=== PATIENT | female | born 1950 | race Caucasian/White ===

== ENCOUNTER → 2018-04-04 12:06 | Outpatient (CLI) | payer MEDICARE, SELFPAY ==
--- NOTE | 2018-04-04 | DI.MG.S_ITS ---
BILATERAL DIGITAL SCREENING MAMMOGRAM 3D/2D WITH CAD: 04/04/2018 CLINICAL: Routine screening. Family history of breast cancer. Comparison is made to exams dated: 11/17/2016 mammogram, 09/22/2015 mammogram, and 09/18/2014 mammogram - [facility]. The tissue of both breasts is extremely dense, which lowers the sensitivity of mammography. Current study was also evaluated with a Computer Aided Detection (CAD) system. There are benign post operative findings in the right breast. There also are benign vascular calcifications in both breasts. Additionally, there are benign biopsy clips in the right breast. No significant masses, calcifications, or other findings are seen in either breast. There has been no significant interval change. IMPRESSION: There is no mammographic evidence of malignancy. A 1 year screening mammogram is recommended. This exam was interpreted at Station ID: [id number]. NOTE: For mammograms, a report in lay terms will be sent to the patient. Approximately 15% of breast malignancies will not be visualized mammographically. In the management of a palpable breast mass, a negative mammogram must not discourage biopsy of a clinically suspicious lesion. Electronically Signed By: Alberto jones/maria antonia:04/04/2018 19:31:21 letter sent: Normal Exam ACR BI-RADS Category 2: Benign Finding(s) 3342F
== END ==
PROVIDERS: PCP Internal Medicine; Visit Provider Internal Medicine
DX: Z12.31 Encounter for screening mammogram for malignant neoplasm of breast (principal); Z80.3 Family history of malignant neoplasm of breast
CPT/HCPCS: 77063; 77067

== ENCOUNTER 2018-09-06 16:45 | Emergency (ER) | payer MEDICARE, SELFPAY ==
[2018-09-06 16:51] VITALS: BP 166/97; PULSE 87; RESP 16; TEMP 36.9; O2SAT 97; BMI 20.7
[2018-09-06] MEDS: diphenhydrAMINE 50 MG/ML VIAL 25 MG IV (17:00)
[2018-09-06] MEDS: methylPREDNISolone 125 MG/2 ML VIAL IV (17:00)
[2018-09-06] MEDS: FAMOTIDINE 20 MG/50 ML PIGGYBACK 200 MG IV (17:11)
--- NOTE | 2018-09-06 17:21 | ED_ITS ---
HPI - Allergic Reaction <MEKA Phillips - Last Filed: 09/06/18 18:42> General Chief complaint: Allergic Reaction Stated complaint: allergic reaction to medication Time Seen by Provider: 09/06/18 16:55 Source: patient and family Mode of arrival: ambulatory History of Present Illness HPI narrative: The is a 68-year-old female nonsmoker with history of dental problems who presents with her significant other for chief complaint of an allergic reaction. She was at the dentist office and took her 1st dose of amoxicillin. It was noted that she had hives, and flushing as well as swelling around her abscess tooth immediately after taking the amoxicillin. She denies any swelling of the lips or face or tongue other than her tooth. She denies any wheezing or shortness of breath. She denies any lightheadedness or dizziness. She has not taken anything prior to arrival. She states that she did not have any injections at the dentist office or anything similar prior to in the redness or hives. She is placed on a steroid burst upon discharge, and I did discuss with her that she can take [id number] antihistamines as needed. Related Data Home Medications Medication Instructions Recorded Confirmed amoxicillin 500 mg PO TID 09/06/18 09/06/18 metronidazole 500 mg PO TID 09/06/18 09/06/18 Previous Rx's Medication Instructions Recorded prednisone 50 mg PO DAILY #6 tab 09/06/18 Allergies Allergy/AdvReac Type Severity Reaction Status Date / Time amoxicillin Allergy Verified 09/06/18 17:00 codeine [CODEINE] AdvReac Intermediate NAUSEASE Verified 09/06/18 17:00 AND VOMITING Review of Systems <MEKA Phillips - Last Filed: 09/06/18 18:42> Review of Systems GENERAL: Denies chills, fatigue, malaise, fever, sweats. HEENT: Denies sinus pain, ear pain, sore throat, difficulty swallowing, dizziness. RESPIRATORY: Denies dyspnea, cough, wheezing, hemoptysis, sputum. CARDIOVASCULAR: Denies chest pain, palpitations, orthopnea, edema, GASTROINTESTINAL: Denies nausea, vomiting, abdominal pain, diarrhea, constipation, melena. : Denies dysuria, frequency, incontinence, hematuria, urinary retention. MUSCULOSKELETAL: denies weakness, joint pain, or bony pain SKIN: See HPI NEUROLOGIC: Denies weakness, headache, numbness, change in speech, confusion, seizures, incoordination. PSYCHIATRIC: No concerning psychosocial issues. 12 point review of systems is negative except for those stated above PFSH <MEKA Phillips - Last Filed: 09/06/18 18:42> Medical History (Updated 09/06/18 @ 17:59 by MEKA Phillips) Dental abscess (Acute) Social History (Updated 09/06/18 @ 17:19 by MEKA Phillips) Smoking Status: Never smoker Social History (Updated 09/06/18 @ 17:19 by MEKA Phillips) Smoking Status: Never smoker Exam <MEKA Phillips - Last Filed: 09/06/18 18:42> Narrative Exam Narrative: GENERAL: This is a well-nourished, well-developed patient, in mild distress. HEAD: Atraumatic. Normocephalic. No temporal or scalp tenderness. EYES: Pupils equal round and reactive. Extraocular motions intact. No scleral icterus. No injection or drainage. ENT: Nose without bleeding, purulent drainage or septal hematoma. Throat without erythema, tonsillar hypertrophy or exudate. Uvula midline. Airway patent. no air pharyngeal swelling noted. large right lower dental swelling noted. NECK: Trachea midline. No JVD or lymphadenopathy. Supple, nontender, no meningeal signs. CARDIOVASCULAR: Regular rate and rhythm without murmurs, gallops, or rubs. RESPIRATORY: Clear to auscultation. Breath sounds equal bilaterally. No wheezes, rales, or rhonchi. No cough. No increased respiratory effort. No stridor. GASTROINTESTINAL: Abdomen soft, non-tender, nondistended. No hepato- splenomegaly, or palpable masses. No guarding. EXTREMITIES: No clubbing, cyanosis, or edema. No joint tenderness, effusion, or edema noted. BACK: Nontender without deformity or crepitance. No flank tenderness. NEURO: AOx3. SKIN: Scattered uticaria noted on back, back of neck. Initial Vital Signs Initial Vital Signs: Vital Signs Temperature 98.5 F 09/06/18 16:51 Pulse Rate 87 09/06/18 16:51 Respiratory Rate 16 09/06/18 16:51 Blood Pressure 166/97 H 09/06/18 16:51 Pulse Oximetry 97 09/06/18 16:51 <Mary Almanzar DO - Last Filed: 09/09/18 19:00> Initial Vital Signs Initial Vital Signs: Vital Signs Temperature 98.5 F 09/06/18 16:51 Pulse Rate 87 09/06/18 16:51 Respiratory Rate 16 09/06/18 16:51 Blood Pressure 166/97 H 09/06/18 16:51 Pulse Oximetry 97 09/06/18 16:51 Course <CITLALI Phillips-JOSEFA - Last Filed: 09/06/18 18:42> Orders Ordered: Discontinued Medications Diphenhydramine HCl (Benadryl) 25 mg IV NOW ONE Stop: 09/06/18 16:53 Last Admin: 09/06/18 17:00 Dose: 25 mg Famotidine (Pepcid) 20 mg in 50 mls @ 200 mls/hr IV NOW ONE Stop: 09/06/18 17:21 Last Infusion: 09/06/18 17:26 Dose: 0 mls/hr Admin: 09/06/18 17:11 Dose: 200 mls/hr Methylprednisolone (Solu-Medrol 125 Mg Vial) 125 mg IV NOW ONE Stop: 09/06/18 16:53 Last Admin: 09/06/18 17:00 Dose: 125 mg Vital Signs - 8 hr 09/06/18 16:51 09/06/18 17:25 09/06/18 18:21 Temperature 98.5 F Pulse Rate 87 68 69 Respiratory Rate 16 17 16 Blood Pressure 166/97 H 137/66 Blood Pressure [Right Arm] 148/79 H Pulse Oximetry 97 98 100 <Mary Almanzar DO - Last Filed: 09/09/18 19:00> Orders Ordered: Discontinued Medications Diphenhydramine HCl (Benadryl) 25 mg IV NOW ONE Stop: 09/06/18 16:53 Last Admin: 09/06/18 17:00 Dose: 25 mg Famotidine (Pepcid) 20 mg in 50 mls @ 200 mls/hr IV NOW ONE Stop: 09/06/18 17:21 Last Infusion: 09/06/18 17:26 Dose: 0 mls/hr Admin: 09/06/18 17:11 Dose: 200 mls/hr Methylprednisolone (Solu-Medrol 125 Mg Vial) 125 mg IV NOW ONE Stop: 09/06/18 16:53 Last Admin: 09/06/18 17:00 Dose: 125 mg Vital Signs - 8 hr 09/06/18 16:51 09/06/18 17:25 09/06/18 18:21 Temperature 98.5 F Pulse Rate 87 68 69 Respiratory Rate 16 17 16 Blood Pressure 166/97 H 137/66 Blood Pressure [Right Arm] 148/79 H Pulse Oximetry 97 98 100 MDM - Allergic Reaction <CITLALI Phillips- - Last Filed: 09/06/18 18:42> MDM Narrative Medical decision making narrative: The patient is a 68-year-old female who presents with chief complaint of an allergic reaction after amoxicillin. She presents with hives, but no oropharyngeal swelling or airway difficulty. She was given Benadryl, Solu-Medrol, and Pepcid in the emergency department. She was monitored, they remained hemodynamically stable throughout her stay in the emergency department. I did give her a prescription of Toradol to take for her tooth pain. She declined narcotics of any kind. I discussed antibiotics for her dental infection, but she states that her dentist is handling that she will follow up with them tomorrow. Discussed at length coming back to the emergency department for any acute shortness of breath, swelling of the face or tongue. Encouraged her to follow up with her primary care provider as well as her dentist. Patient had no questions or concerns upon discharge Discharge Plan Departure Patient Disposition: Home Clinical Impression: Urticaria Allergic reaction Qualifiers: Encounter type: initial encounter Qualified Code(s): T78.40XA - Allergy, unspecified, initial encounter Discharge Date/Time: 09/06/18 18:22 Interventions: ED Discharge Assessment Last Done: 09/06/18 18:21 Instructions: DI for Hives, DI for Adverse Drug Reaction -- Allergic Activity Restrictions/Additional Instructions: You are allergic to amoxicillin. Please stop taking it. Please follow up with the dentist as we discussed regarding her tooth extraction. I have given you prescription of Toradol to take at home. This is a non narcotic pain medication, but do not combine it with other NSAIDs such as Aleve or ibuprofen. You can take this 6 hours after your last ibuprofen dose. Please follow up with primary care provider. I am also giving you a burst of steroids to help with your hives and allergic reaction. You can also take antihistamines as needed such as Benadryl and/or Pepcid. Please follow up with her dentist regarding her tooth. Come back to the emergency department for any acute concerns such as shortness of breath, swelling of the lips or tongue, or other concerns. Prescriptions: New prednisone 50 mg tablet 50 mg PO DAILY Qty: 6 RF: 0 No Action amoxicillin 500 mg capsule 500 mg PO TID RF: 0 metronidazole 500 mg tablet 500 mg PO TID RF: 0 Referrals: Rosemarie Montero MD [Primary Care Provider] - <Mary Almanzar DO - Last Filed: 09/09/18 19:00> Cosign ED Attending Enrikeature Attestation: I was immediately available in the department for consultation. Documentation has been reviewed. I agree with assessment and plan.
[2018-09-06 17:25] VITALS: BP 148/79; PULSE 68; RESP 17; O2SAT 98
[2018-09-06 18:21] VITALS: BP 137/66; PULSE 69; RESP 16; O2SAT 100
== END 2018-09-06 18:22 | disposition home or self-care (01) ==
PROVIDERS: Emergency Provider Nurse Practitioner Family; PCP Internal Medicine
DX: T78.40XA Allergy, unspecified, initial encounter (principal)
CPT/HCPCS: 36591; 96374; 96375; 99283; 99284; J1200; J2930

== ENCOUNTER → 2018-10-23 11:04 | Outpatient (CLI) | payer MEDICARE, SELFPAY ==
--- NOTE | 2018-10-23 | DI.US.S_ITS ---
PROCEDURE: US AORTA LIMITED INDICATIONS: SCREENING TECHNIQUE: Real time scanning was performed of the aorta and iliac arteries, with image documentation. COMPARISON: None. FINDINGS: Aorta: Proximal aortic diameter measures 2.4 cm. Mid-aorta measures 1.6 cm. Distal aortic diameter is 1.6 cm. Iliac arteries: Right common iliac artery measures 0.8 cm. Left common iliac artery measures 0.8 cm. IMPRESSION: No evidence of abdominal aortic aneurysm. Dictated by: Neal Schultz M.D. on 10/23/2018 at 16:00 Approved by: Neal Schultz M.D. on 10/23/2018 at 16:01
[2018-10-23 13:10] LABS: Blood Urea Nitrogen 15 mg/dL (7-17); Calcium 9.7 mg/dL (8.4-10.2); Carbon Dioxide 27 mmol/L (22-32); Chloride 102 mmol/L (98-107); Cholesterol 217 mg/dL (140-199); Estimated Glomerular Filt Rate > 60.0 mL/min (>60); Glucose 101 mg/dL (80-110); HDL Cholesterol 92 mg/dL (40-60); HEMOLYSIS < 15 (0-50); LDL Cholesterol Calculated 110 mg/dL (<100); Potassium 4.4 mmol/L (3.4-5.1); Sodium 138 mmol/L (137-145); Triglycerides 77 mg/dL (35-150)
== END ==
PROVIDERS: PCP Internal Medicine; Visit Provider Internal Medicine
DX: Z13.6 Encounter for screening for cardiovascular disorders (principal); Z13.820 Encounter for screening for osteoporosis; M85.88 Other specified disorders of bone density and structure, other site; Z13.220 Encounter for screening for lipoid disorders; Z13.1 Encounter for screening for diabetes mellitus; Z87.891 Personal history of nicotine dependence
CPT/HCPCS: 36415; 77080; 80048; 80061; 93979

== ENCOUNTER 2018-12-20 07:22 | Day surgery (SDC) | payer MEDICARE, SELFPAY ==
[2018-12-20] VITALS (7 sets, daily range): BP systolic 96–123; BP diastolic 57–81; PULSE 58–70; RESP 13–16; TEMP 36.4–36.7; O2SAT 94–99; BMI 22.3
--- NOTE | 2018-12-20 | PATH_ITS ---
[facility] Accession Number: [id number] . 01 Material submitted: . cecum - CECAL POLYP . 02 Diagnosis: Cecum, Polyp, Biopsy: Tubular adenoma. MRV/12/21/2018 . 02 Electronically signed: . Tiffanie Kc MD, Pathologist NPI- [id number] . 01 Gross description: . CECAL POLYP: Received in formalin are 2 fragment(s) of gerard, soft tissue measuring 0.1 x 0.1 x 0.1 cm to 0.5 x 0.3 x 0.2 cm which is entirely submitted and submitted entirely in 1 cassette(s) /DMC /DMC . 02 Pathologist provided ICD-10: D12.0 . 02 CPT . 914685 Performed at: 01 [facility] [address] [facility], [place], [place] [id number] MD Pedro Pablo Mc MD Phone: [phone] Performed at: 02 [facility] [address] [place], [place] [id number] MD Tiffanie Kc MD Phone: [phone]
--- NOTE | 2018-12-20 07:47 | P.HP_ITS ---
History of Present Illness Date Patient Seen: 12/20/18 Chief complaint: 13712 Narrative: 60-year-old female with a family history of colon cancer in her father who was in his 60s, personal history of colon polyps, last colonoscopy 2008 in [place], who is here for polyp surveillance. She has no active GI symptoms at present Patient History Medical History (Updated 09/21/18 @ 00:00 by ) Dental abscess (Acute) Social History (Updated 09/06/18 @ 17:19 by Roma Caldera [facility]) household members: significant other Smoking Status: Never smoker Family & Social History Tobacco & Substance use: Smoking Status Never smoker Meds Home Medications Medication Instructions Recorded Confirmed Type amoxicillin 500 mg PO TID 09/06/18 09/06/18 History metronidazole 500 mg PO TID 09/06/18 09/06/18 History prednisone 50 mg PO DAILY #6 tab 09/06/18 Rx Allergies Allergy/AdvReac Type Severity Reaction Status Date / Time amoxicillin Allergy Verified 12/20/18 08:03 codeine [CODEINE] AdvReac Intermediate NAUSEASE Verified 12/20/18 08:03 AND VOMITING Exam Narrative Exam Narrative: General: Patient is well developed, not in apparent distress Cardiovascular: Regular rate and rhythm, no murmurs, rubs, or gallops; no evidence of edema; no palpable abdominal aortic aneurysm Gastrointestinal: Normoactive bowel sounds, soft, nontender, nondistended, no rebound tenderness, no hepatosplenomegaly, no evidence of hernia Assessment & Plan Assessment & Plan narrative: 60-year-old female with family history of colon cancer and personal history of colon polyps here for colon polyp surveillance. No current alarm symptoms Regarding the procedure(s), the risks and potential complications, benefits, and alternatives (including not doing the procedure) were discussed with the patient. The risks include but are not limited to bleeding, splenic injury, infection, perforation which may require surgical intervention, missed lesions, and adverse reactions to sedative medicines. After a question and answer period, the patient agreed to proceed with the procedure(s) and gives informed consent.
[2018-12-20] MEDS: SODIUM CHLORIDE 0.9% 1,000 ML 70 ML IV (07:58)
--- NOTE | 2018-12-20 09:05 | PM.OP.ENDO ---
Operative Date/Time/Diagnoses Date of procedure: 12/20/18 Procedure Notes Procedure in detail: Surgeon: Toi Owens MD Procedure: Colonoscopy with polypectomy Preoperative diagnosis: Colon polyp surveillance; family history colon cancer (father in 60s) Postoperative diagnosis: Cecal polyp status post polypectomy, sigmoid diverticulosis Medications: Conscious sedation using 5 mg IV of Midazolam and 100 mcg IV of Fentanyl Preanesthesia Assessment An H and P was performed/updated and the Px?s ASA class is 1. The procedure was discussed in detail with the patient. The potential risks and complications including infection, bleeding, missed lesions, perforation, need for surgery in case of perforation, prolonged hospital stay, and were explained. A brief question and answer period was allotted and once all questions were answered, informed consent was obtained. The patient was brought back to the procedure room and placed on standard monitoring. The patient?s vital signs were monitored continuously throughout the entire procedure. Prior to starting, a timeout was performed to confirm the patient?s identity, allergies, medications, and procedure. Procedure in detail The patient was placed in left lateral decubitus position and once adequate sedation was obtained a STEPHAN was performed. The digital rectal examination did not reveal any palpable lesions. The tip of the colonoscope was placed in the anal canal and advanced without difficulty all the way to the cecum which was identified by the appendiceal orifice and the ileocecal valve. The terminal ileum was intubated to a distance of 5 cm from the ileocecal valve and the mucosa appeared normal. The colonoscope was then brought back to the cecum where careful examination of all ellsworth of the colon was performed with irrigation of any residual stool. Just adjacent to the appendiceal orifice there was note of a 3 mm sessile polyp which was removed by means of cold Jumbo forceps. Resection and retrieval was complete with minimal bleeding. There was a large diverticulum in the ascending colon. There was note of multiple small to medium-sized diverticula in the sigmoid colon. Retroflexion was performed in the rectum which revealed grade 2 internal hemorrhoids. The patient tolerated the procedure well and will be brought back to the recovery area to be discharged once criteria are met. The prep was judged to be good/excellent and adequate to identify polyps less than 5 mm. The withdrawal time was 7 minutes. The total physician intraservice time was 16 minutes. Complications There were no complications and estimated blood loss was minimal. Recommendations: Resume previous diet Continue outPx medications Follow up pathology results Repeat colonoscopy in 5 years If you have any trouble with your hemorrhoids, feel free to call our office to make an appointment so you can be evaluated to see if you would be a good candidate for hemorrhoid banding An emergency contact number was given to the patient for any complications related to the procedure
[2018-12-20] MEDS: fentaNYL 250 MCG/5 ML INJ IV (09:20)
[2018-12-20] MEDS: MIDAZOLAM 5 MG/5 ML VIAL IV (09:21)
== END 2018-12-20 10:23 | disposition home or self-care (01) ==
PROVIDERS: PCP Internal Medicine; Visit Provider Internal Medicine Gastroenterology
PROC: 0DJD8ZZ Inspection of Lower Intestinal Tract, Via Natural or Artificial Opening Endoscopic (ICD-10-PCS; CPT 45378; principal; 2018-12-20 09:00)
DX: Z86.010 Personal history of colon polyps (principal); D12.0 Benign neoplasm of cecum; K57.30 Diverticulosis of large intestine without perforation or abscess without bleeding; K64.1 Second degree hemorrhoids; Z80.0 Family history of malignant neoplasm of digestive organs
CPT/HCPCS: 45380; 88305; J2250; J3010

== ENCOUNTER → 2019-04-11 08:12 | Outpatient (CLI) | payer MEDICARE, SELFPAY ==
--- NOTE | 2019-04-11 | DI.MG.S_ITS ---
BILATERAL DIGITAL SCREENING MAMMOGRAM 3D/2D WITH CAD: 04/11/2019 CLINICAL: Routine screening. Family history of breast cancer. Comparison is made to exams dated: 04/04/2018 mammogram, 11/17/2016 mammogram, and 09/22/2015 mammogram - [facility]. The tissue of both breasts is heterogeneously dense. This may lower the sensitivity of mammography. Current study was also evaluated with a Computer Aided Detection (CAD) system. There are grouped linear calcifications in the left breast posterior depth central to the nipple seen on the mediolateral oblique view only. These appear more prominent. They are not seen on the craniocaudal view but are suspected to be more lateral in the left breast than what was included in the field of view. No other significant masses, calcifications, or other findings are seen in either breast. IMPRESSION: INCOMPLETE: NEEDS ADDITIONAL IMAGING EVALUATION The grouped linear calcifications in the left breast are indeterminate. Mediolateral, spot magnification, and exaggerated CC views are recommended. This exam was interpreted at Station ID: [id number]. NOTE: For mammograms, a report in lay terms will be sent to the patient. Approximately 15% of breast malignancies will not be visualized mammographically. In the management of a palpable breast mass, a negative mammogram must not discourage biopsy of a clinically suspicious lesion. Electronically Signed By: Celestine Hatch M.D. aty/:04/11/2019 11:08:32 letter sent: Additional Imaging Needed ACR BI-RADS Category 0: Incomplete 3340F
== END ==
PROVIDERS: PCP Internal Medicine; Visit Provider Internal Medicine
DX: Z12.31 Encounter for screening mammogram for malignant neoplasm of breast (principal); Z80.3 Family history of malignant neoplasm of breast
CPT/HCPCS: 77063; 77067

== ENCOUNTER → 2019-05-03 14:44 | Outpatient (CLI) | payer MEDICARE, SELFPAY ==
--- NOTE | 2019-05-03 | DI.MG.S_ITS ---
UNILATERAL LEFT DIGITAL DIAGNOSTIC MAMMOGRAM 3D/2D WITH ADDITIONAL VIEWS: 05/03/2019 CLINICAL: Additional evaluation requested from prior study. Comparison is made to exams dated: 04/11/2019 mammogram, 04/04/2018 mammogram, and 11/17/2016 mammogram - [facility]. The tissue of left breast is heterogeneously dense. This may lower the sensitivity of mammography. Previously identified grouped linear calcifications in the left breast posterior depth central to the nipple seen on the mediolateral oblique view only on comparison screening mammogram of 04/11/19 persist with additional views, and parallel posterior left breast blood vessels on magnification views, suggestive of vascular calcifications. These project over the pectoralis musculature on lateral magnification views. Vascular calcifications are also identified in other areas of the left breast. IMPRESSION: PROBABLY BENIGN Previously identified grouped linear calcifications in the left breast posterior depth central to the nipple seen on the mediolateral oblique view only on comparison screening mammogram of 04/11/19 persist with additional views, and parallel posterior left breast blood vessels on magnification views, suggestive of vascular calcifications. A follow-up diagnostic mammogram in 6 months is recommended to demonstrate stability and to exclude underlying malignancy. The patient is advised to monitor her breasts and to return sooner for reevaluation if she feels anything grow or change in her breasts. This exam was interpreted at Station ID: [id number]. NOTE: For mammograms, a report in lay terms will be sent to the patient. Approximately 15% of breast malignancies will not be visualized mammographically. In the management of a palpable breast mass, a negative mammogram must not discourage biopsy of a clinically suspicious lesion. Electronically Signed By: Alberto Bess M.D. ecl/:05/03/2019 15:18:53 letter sent: Followup Recommended ACR BI-RADS Category 3: Probably benign 3343F
== END ==
PROVIDERS: PCP Internal Medicine; Visit Provider Internal Medicine
DX: R92.1 Mammographic calcification found on diagnostic imaging of breast (principal)
CPT/HCPCS: 77065; G0279

== ENCOUNTER → 2019-10-19 08:36 | Outpatient (CLI) | payer MEDICARE, SELFPAY ==
--- NOTE | 2019-10-19 | DI.MG.S_ITS ---
UNILATERAL LEFT DIGITAL DIAGNOSTIC MAMMOGRAM 3D/2D SHORT-TERM FOLLOW-UP: 10/19/2019 CLINICAL: Short term follow up for the left breast. Comparison is made to exams dated: 05/03/2019 mammogram, 04/11/2019 mammogram, and 04/04/2018 mammogram - [facility]. The tissue of left breast is heterogeneously dense. This may lower the sensitivity of mammography. There are linear fine calcifications in the left breast at 5 o'clock posterior depth. These are increased in number of calcifications. These appear to extend beyond adjacent blood vessels. No other significant masses or calcifications are seen in the breast. IMPRESSION: SUSPICIOUS OF MALIGNANCY The linear fine calcifications in the left breast are at a moderate suspicion for malignancy. A stereotactic biopsy is recommended. The findings were discussed with the patient at the conclusion of the study by Dr. Lopez. This exam was interpreted at Station ID: [id number]. NOTE: For mammograms, a report in lay terms will be sent to the patient. Approximately 15% of breast malignancies will not be visualized mammographically. In the management of a palpable breast mass, a negative mammogram must not discourage biopsy of a clinically suspicious lesion. Electronically Signed By: Pedro Pablo ramires/:10/19/2019 09:49:06 letter sent: Biopsy Required ACR BI-RADS Category 4b: Suspicious abnormality - intermediate suspicion of malignancy 3344F
== END ==
PROVIDERS: PCP Internal Medicine; Referring Provider Internal Medicine; Visit Provider Internal Medicine
DX: R92.8 Other abnormal and inconclusive findings on diagnostic imaging of breast (principal); R92.1 Mammographic calcification found on diagnostic imaging of breast
CPT/HCPCS: 77065; G0279

== ENCOUNTER → 2020-04-25 09:33 | Outpatient (CLI) | payer MEDICARE, SELFPAY ==
--- NOTE | 2020-04-25 | DI.MG.S_ITS ---
BILATERAL DIGITAL DIAGNOSTIC MAMMOGRAM 3D/2D SHORT-TERM FOLLOW-UP: 04/25/2020 CLINICAL: Patient returns for a 6 month follow up of the left breast, due for bilateral exam. Post Biopsy. Comparison is made to exams dated: 10/26/2019 stereotactic biopsy - [facility], 10/19/2019 mammogram, 05/03/2019 mammogram, and 04/11/2019 mammogram - [facility]. The tissue of both breasts is heterogeneously dense. This may lower the sensitivity of mammography. The benign calcification in the left breast at 5 o'clock posterior depth is no longer seen. There is a biopsy clip associated with the calcification. No other significant masses, calcifications, or other findings are seen in either breast. IMPRESSION: BENIGN There is no mammographic evidence of malignancy. A 1 year screening mammogram is recommended. This exam was interpreted at Station ID: [id number]. NOTE: For mammograms, a report in lay terms will be sent to the patient. Approximately 15% of breast malignancies will not be visualized mammographically. In the management of a palpable breast mass, a negative mammogram must not discourage biopsy of a clinically suspicious lesion. Electronically Signed By: Pedro Pablo ramires/maria antonia:04/25/2020 10:56:27 letter sent: Normal Exam ACR BI-RADS Category 2: Benign Finding(s) 3342F
== END ==
PROVIDERS: PCP Internal Medicine; Referring Provider Internal Medicine; Visit Provider Internal Medicine
DX: R92.8 Other abnormal and inconclusive findings on diagnostic imaging of breast (principal)
CPT/HCPCS: 77066; G0279

== ENCOUNTER → 2020-06-13 08:50 | Outpatient (CLI) | payer OTHER, SELFPAY ==
[2020-06-13 10:15] LABS: Alanine Aminotransferase 11 IU/L (<35); Albumin Globulin Ratio 1.5 (1.0-2.8); Alkaline Phosphatase 60 U/L (38-126); Aspartate Aminotransferase 20 IU/L (14-36); BUN Creatinine Ratio 21.2 (6-22); Bilirubin Total 0.6 mg/dL (0.2-1.3); Blood Urea Nitrogen 14 mg/dL (7-17); Calcium 9.2 mg/dL (8.4-10.2); Carbon Dioxide 30 mmol/L (22-32); Chloride 107 mmol/L (98-107); Cholesterol 203 mg/dL (140-199); Estimated Glomerular Filt Rate > 60.0 mL/min (>60); Globulin 2.6 g/dL (1.7-4.1); Glucose 101 mg/dL (80-110); HDL Cholesterol 80 mg/dL (40-60); HEMOLYSIS < 15 (0-50); LDL Cholesterol Calculated 108 mg/dL (<100); Potassium 4.4 mmol/L (3.4-5.1); Sodium 139 mmol/L (137-145); Total Protein 6.6 g/dL (6.3-8.2); Triglycerides 75 mg/dL (35-150)
== END ==
PROVIDERS: PCP Internal Medicine; Referring Provider Internal Medicine; Visit Provider Internal Medicine
DX: E78.5 Hyperlipidemia, unspecified (principal); R07.9 Chest pain, unspecified
CPT/HCPCS: 36415; 80053; 80061

== ENCOUNTER → 2020-07-14 09:32 | Outpatient (CLI) | payer OTHER, SELFPAY ==
[2020-07-14 11:13] LABS: COVID19 -Nasal RAPID Negative (Negative)
== END ==
PROVIDERS: PCP Internal Medicine; Visit Provider Nurse Practitioner Family
DX: Z01.812 Encounter for preprocedural laboratory examination (principal); Z20.822 Contact with and (suspected) exposure to COVID-19
CPT/HCPCS: 87635; C9803

== ENCOUNTER → 2020-07-16 10:13 | Outpatient (CLI) | payer OTHER, SELFPAY ==
--- NOTE | 2020-07-16 20:57 | DI.NM.S_ITS ---
DATE OF SERVICE: 07/16/2020 PROCEDURE PERFORMED: Pharmacologic vasodilator stress and rest myocardial perfusion imaging with gating to assess ejection fraction and regional wall motion. ORDERING PROVIDER: Dr. Rosemarie Montero. INDICATIONS: The patient is a 70-year-old female with known LBBB who presents with atypical chest discomfort. PHARMACOLOGIC STRESS: Per protocol, 0.4 mg of regadenoson was infused with a normal hemodynamic response. She developed moderate dyspnea and flushing, but no chest discomfort. Her resting ECG shows a sinus rhythm with an LBBB with associated ST-segment abnormalities. With stress, there were no obvious significant ST-segment shifts. She had a five-beat run of atrial tachycardia noted, but no concerning arrhythmias. Per protocol, 25.6 millicuries of technetium-99m Myoview was injected and the patient was imaged 15 minutes later using a gated SPECT acquisition protocol. Earlier in the day, she had been injected with 12.6 millicuries of technetium- 99m Myoview while at rest and was imaged 30 minutes later, again using a gated SPECT acquisition protocol. FINDINGS: 1. Raw data: There is fairly good myocardial tracer uptake. Lung/heart ratio is normal at 0.36 with a normal TID ratio of 0.93. 2. Quantitated gated SPECT: Post-stress ejection fraction is estimated at 78 percent with a slight dyssynchronous contraction pattern, but no focal wall motion abnormality. Resting ejection fraction is also 78% percent with a normal resting end-diastolic volume of 80 mL. 3. Myocardial perfusion imaging: Post-stress supine images shows a fairly normal myocardial perfusion pattern, although a very subtle defect in the mid and distal anterior septum in a location typical for a LBBB artifact. This defect improves, but does not completely resolve on the prone images. The resting images show an identical perfusion pattern without any significant improvement. IMPRESSION: 1. Probable normal myocardial perfusion study. 2. Subtle small fixed mid to distal anteroseptal defect that most likely reflects LBBB artifact. While previous nontransmural infarction cannot be entirely excluded, given its location and absence of any wall motion abnormality, this most likely reflects artifact rather than infarction. There is no evidence for any significant myocardial ischemia. 3. Normal left ventricular systolic function without any focal wall motion abnormality. 4. No angina or electrocardiographic evidence of ischemia with pharmacologic vasodilator stress although the presence of an LBBB reduces the sensitivity of this. She did have a brief run of SVT at 150 BPM, but no other arrhythmias. 5. Compared to the previous myocardial perfusion study of 03/21/2014, an identical perfusion pattern is seen, again with a fixed mid to distal anteroseptal defect that was felt to reflect attenuation artifact. Her previous ejection fraction was 82 percent with an end-diastolic volume of 81 mL. Thus, there has been no significant change since the previous exam. Sharon Lamas - ECHO/gerald/dina doc#: [id number]/job#: [id number] dd: 07/16/2020 16:49:00 dt: 07/16/2020 20:19:00 DICTATING MD/COPIES TO: Ronny Vides MD; Rosemarie Montero MD COPIES MNE: CAM[place];
== END ==
PROVIDERS: PCP Internal Medicine; Referring Provider Internal Medicine; Visit Provider Internal Medicine
DX: R07.89 Other chest pain (principal); I44.7 Left bundle-branch block, unspecified
CPT/HCPCS: 78452; 93017; A9502; J2785

== ENCOUNTER → 2021-04-27 16:04 | Outpatient (CLI) | payer OTHER, SELFPAY ==
--- NOTE | 2021-04-27 | DI.MG.S_ITS ---
BILATERAL DIGITAL SCREENING MAMMOGRAM 3D/2D WITH CAD: 04/27/2021 CLINICAL: Routine screening. Family history of breast cancer. Comparison is made to exams dated: 04/25/2020 mammogram, 10/19/2019 mammogram, 05/03/2019 mammogram, and 04/11/2019 mammogram - [facility]. The tissue of both breasts is heterogeneously dense. This may lower the sensitivity of mammography. Current study was also evaluated with a Computer Aided Detection (CAD) system. There are benign post operative findings in the right breast. There are mole markers on the left breast. No significant masses, calcifications, or other findings are seen in either breast. There has been no significant interval change. IMPRESSION: BENIGN There is no mammographic evidence of malignancy. A 1 year screening mammogram is recommended. This exam was interpreted at Station ID: [id number]. NOTE: For mammograms, a report in lay terms will be sent to the patient. Approximately 15% of breast malignancies will not be visualized mammographically. In the management of a palpable breast mass, a negative mammogram must not discourage biopsy of a clinically suspicious lesion. Electronically Signed By: Suresh Palmer acr/maria antonia:04/27/2021 16:37:25 letter sent: Normal Exam ACR BI-RADS Category 2: Benign Finding(s) 3342F
== END ==
PROVIDERS: PCP Internal Medicine; Referring Provider Internal Medicine; Visit Provider Internal Medicine
DX: Z12.31 Encounter for screening mammogram for malignant neoplasm of breast (principal); Z80.3 Family history of malignant neoplasm of breast
CPT/HCPCS: 77063; 77067

== ENCOUNTER → 2021-09-14 11:35 | Outpatient (CLI) | payer OTHER, SELFPAY | PROVIDERS: PCP Internal Medicine; Referring Provider Internal Medicine; Visit Provider Internal Medicine | DX: M85.89 Other specified disorders of bone density and structure, multiple sites (principal); Z13.820 Encounter for screening for osteoporosis; Z78.0 Asymptomatic menopausal state | CPT/HCPCS: 77080 ==

== ENCOUNTER → 2022-04-01 10:24 | Outpatient (CLI) | payer OTHER, SELFPAY ==
--- NOTE | 2022-04-01 10:26 | DI.RAD.S_ITS ---
PROCEDURE: XR WRIST LT MIN 3V INDICATIONS: left wrist injury TECHNIQUE: 4 views of the wrist were acquired. COMPARISON: None. FINDINGS: Bones: No fractures or dislocations. No suspicious bony lesions. Prominent 1st CMC arthritic change. Scaphoid view: No visualized fracture. Soft tissues: No suspicious soft tissue calcifications. IMPRESSION: No visualized acute fracture or dislocation. However, if clinical concern and/or pain persist, short interval imaging followup in 7-10 days is recommended, as occult injury cannot be definitively excluded. Dictated by: Therese Aragon M.D. on 04/01/2022 at 11:13 Approved by: Therese Aragon M.D. on 04/01/2022 at 11:13
== END ==
PROVIDERS: PCP Internal Medicine; Referring Provider Nurse Practitioner Family; Visit Provider Nurse Practitioner Family
DX: S69.92XA Unspecified injury of left wrist, hand and finger(s), initial encounter (principal); X58.XXXA Exposure to other specified factors, initial encounter
CPT/HCPCS: 73110

== ENCOUNTER → 2022-05-20 08:18 | Outpatient (CLI) | payer MEDICARE, SELFPAY ==
--- NOTE | 2022-05-20 | DI.MG.S_ITS ---
BILATERAL DIGITAL SCREENING MAMMOGRAM 3D/2D WITH CAD: 05/20/2022 CLINICAL: Routine screening. Family history of breast cancer. Comparison is made to exams dated: 04/27/2021 mammogram, 04/25/2020 mammogram, and 04/11/2019 mammogram - [facility]. Both breasts are heterogeneously dense, which may obscure small masses (category c / 51-75% glandular tissue). Current study was also evaluated with a Computer Aided Detection (CAD) system. There are benign post operative findings in the right breast. There are mole markers on the left breast. No significant masses, calcifications, or other findings are seen in either breast. There has been no significant interval change. IMPRESSION: BENIGN There is no mammographic evidence of malignancy. A 1 year screening mammogram is recommended. Based on the Tyrer Cuzick model (a risk assessment model) the patient's lifetime risk is 13.0% and her 10 year risk is 9.8%. According to the ACR, ACS, and NCCN guidelines, an annual breast MRI exam along with mammogram is recommended if the patient's lifetime risk is 20% or greater. This exam was interpreted at Station ID: [id number]. NOTE: For mammograms, a report in lay terms will be sent to the patient. Approximately 15% of breast malignancies will not be visualized mammographically. In the management of a palpable breast mass, a negative mammogram must not discourage biopsy of a clinically suspicious lesion. Electronically Signed By: Matt Oneal M.D., jr/maria antonia:05/20/2022 11:44:26 letter sent: Normal Exam ACR BI-RADS Category 2: Benign Finding(s) 3342F
== END ==
PROVIDERS: PCP Internal Medicine; Referring Provider Internal Medicine; Visit Provider Internal Medicine
DX: Z12.31 Encounter for screening mammogram for malignant neoplasm of breast (principal); Z80.3 Family history of malignant neoplasm of breast
CPT/HCPCS: 77063; 77067

== ENCOUNTER → 2022-10-07 16:23 | Outpatient (CLI) | payer MEDICARE, SELFPAY ==
--- NOTE | 2022-10-07 16:25 | DI.RAD.S_ITS ---
PROCEDURE: XR FOOT LT MIN 3V INDICATIONS: Foot pain TECHNIQUE: 3 views of the foot were acquired. COMPARISON: None. FINDINGS: Bones: No fractures or dislocations. No suspicious bony lesions. Calcaneal pitch is 14.3?. Soft tissues: No tibiotalar joint effusion. Achilles tendon appears normal. IMPRESSION: Pes planus Dictated by: Alicja Holden M.D. on 10/07/2022 at 17:39 Approved by: Alicja Holden M.D. on 10/07/2022 at 17:39
== END ==
PROVIDERS: PCP Internal Medicine; Referring Provider Podiatrist Foot & Ankle Surgery; Visit Provider Podiatrist Foot & Ankle Surgery
DX: M21.42 Flat foot [pes planus] (acquired), left foot (principal); M72.2 Plantar fascial fibromatosis
CPT/HCPCS: 73630

== ENCOUNTER → 2023-05-19 15:11 | Outpatient (CLI) | payer MEDICARE, SELFPAY ==
[2023-05-19 16:27] LABS: Influenza A - CEPHEID Flu A NEGATIVE (NEGATIVE); Influenza B - CEPHEID Flu B NEGATIVE (NEGATIVE); Respiratory Syncytial Virus Negative (Negative)
[2023-05-19 16:35] LABS: COVID-19 CEPHEID 4-PLEX PCR Negative (Negative)
== END ==
PROVIDERS: PCP Internal Medicine; Visit Provider Nurse Practitioner Family
DX: R05.1 Acute cough (principal)
CPT/HCPCS: 0241U

== ENCOUNTER → 2023-06-23 07:45 | Outpatient (CLI) | payer MEDICARE, SELFPAY ==
--- NOTE | 2023-06-23 07:46 | DI.MG.S_ITS ---
BILATERAL DIGITAL SCREENING MAMMOGRAM 3D/2D WITH CAD: 06/23/2023 CLINICAL: Routine screening. Family history of breast cancer. Comparison is made to exams dated: 05/20/2022 mammogram, 04/27/2021 mammogram, and 04/25/2020 mammogram - [facility]. Both breasts are heterogeneously dense, which may obscure small masses (category c / 51-75% glandular tissue). Current study was also evaluated with a Computer Aided Detection (CAD) system. There are benign post operative findings in the right breast. No significant masses, calcifications, or other findings are seen in either breast. There has been no significant interval change. IMPRESSION: BENIGN There is no mammographic evidence of malignancy. A 1 year screening mammogram is recommended. Based on the Tyrer Cuzick model (a risk assessment model) the patient's lifetime risk is 12.2% and her 10 year risk is 10.1%. According to the ACR, ACS, and NCCN guidelines, an annual breast MRI exam along with mammogram is recommended if the patient's lifetime risk is 20% or greater. This exam was interpreted at Station ID: [id number]. NOTE: For mammograms, a report in lay terms will be sent to the patient. Approximately 15% of breast malignancies will not be visualized mammographically. In the management of a palpable breast mass, a negative mammogram must not discourage biopsy of a clinically suspicious lesion. Electronically Signed By: James arroyo/maria antonia:06/23/2023 15:31:03 letter sent: Normal Exam ACR BI-RADS Category 2: Benign Finding(s) 3342F
== END ==
LOC: MAMMO 07:45
PROVIDERS: PCP Internal Medicine; Referring Provider Internal Medicine; Visit Provider Internal Medicine
DX: Z12.31 Encounter for screening mammogram for malignant neoplasm of breast (principal); Z80.3 Family history of malignant neoplasm of breast; R92.333 Mammographic heterogeneous density, bilateral breasts
CPT/HCPCS: 77063; 77067

== ENCOUNTER → 2024-06-25 08:24 | Outpatient (CLI) | payer MEDICARE, SELFPAY ==
--- NOTE | 2024-06-25 08:26 | DI.MG.S_ITS ---
BILATERAL DIGITAL SCREENING MAMMOGRAM 3D/2D WITH CAD: 06/25/2024 CLINICAL: Routine screening. Family history of breast cancer. Comparison is made to exams dated: 06/23/2023 mammogram, 05/20/2022 mammogram, and 04/27/2021 mammogram - [facility]. The breasts are heterogeneously dense, which may obscure small masses (category c / 51-75% glandular tissue). Current study was also evaluated with a Computer Aided Detection (CAD) system. There are benign vascular calcifications in both breasts. There also are benign post operative findings in the right breast. No significant masses, calcifications, or other findings are seen in either breast. There has been no significant interval change. IMPRESSION: BENIGN There is no mammographic evidence of malignancy. A 1 year screening mammogram is recommended. Based on the Tyrer Cuzick model (a risk assessment model) the patient's lifetime risk is 11.4% and her 10 year risk is 10.3%. According to the ACR, ACS, and NCCN guidelines, an annual breast MRI exam along with mammogram is recommended if the patient's lifetime risk is 20% or greater. This exam was interpreted at Station ID: [id number]. NOTE: For mammograms, a report in lay terms will be sent to the patient. Approximately 15% of breast malignancies will not be visualized mammographically. In the management of a palpable breast mass, a negative mammogram must not discourage biopsy of a clinically suspicious lesion. Electronically Signed By: Celestine garcia/maria antonia:06/25/2024 09:07:28 letter sent: Normal Exam ACR BI-RADS Category 2: Benign
== END ==
PROVIDERS: PCP Physician Assistant; Referring Provider Physician Assistant; Visit Provider Physician Assistant
DX: Z12.31 Encounter for screening mammogram for malignant neoplasm of breast (principal); Z80.3 Family history of malignant neoplasm of breast; R92.333 Mammographic heterogeneous density, bilateral breasts
CPT/HCPCS: 77063; 77067